=== PATIENT | female | born 1985 | race Caucasian/White ===

== ENCOUNTER 2024-01-03 13:57 | Emergency (ER) | payer OTHER ==
[~2024-01-03] VITALS: Ht 172.7 cm; Wt 127.0 kg
[2024-01-03 14:04] VITALS: BP 209/133
[2024-01-03] MEDS ORDERED: AMOCLA875 PO (14:20)
== END 2024-01-03 14:38 | disposition home or self-care (01) ==
LOC: ER 13:57
DX: S71.152A Open bite, left thigh, initial encounter (principal); W54.0XXA Bitten by dog, initial encounter
CPT/HCPCS: 99282